=== PATIENT | female | born 1940 | race Two or more races ===

== ENCOUNTER 2018-08-08 17:34 | Emergency (ER) | payer MEDICARE, MEDICAID ==
[~2018-08-08] VITALS: Ht 154.9 cm; Wt 56.7 kg
[2018-08-08] MEDS ORDERED: METO-356 PO (17:44)
[2018-08-08] MEDS ORDERED: GABA400C PO (17:44)
[2018-08-08] MEDS ORDERED: LOSA50TA39 PO (17:44)
[2018-08-08 17:52] LABS: *BILIRUBIN,URIN 1+ (NEGATIVE); *BLOOD, URINE 3+ (NEGATIVE); *CLARITY,URINE CLOUDY (CLEAR); *KETONES,URINE TRACE (NEGATIVE); *UROBILINOGEN,URINE 0.2 E.U./dl (NORMAL); NITRITE, URINE NEGATIVE (NEGATIVE); PH,URINE 5.5 (5.0-8.0); UGLUCOSE NEGATIVE (NEGATIVE)
[2018-08-08 17:59] LABS: *COLOR,URINE Brown (YELLOW); LEUKOCYTE ESTERASE ,URINE 2+ (NEGATIVE)
[2018-08-08 18:01] LABS: BACTERIA,URINE FEW /HPF (NONE SEEN); RBC,URINE TNTC /HPF (0-3); SQUAMOUS EPITHELIAL CELL,UR MODERATE /HPF (NONE SEEN); WBC,URINE 50-80 /HPF (0-3)
[2018-08-08 18:02] LABS: MUCUS,URINE MODERATE /LPF (0-FEW)
[2018-08-08] MEDS ORDERED: CEFTRIAXONE 1 G VIAL IM ONE (18:15)
[2018-08-08] MEDS ORDERED: LIDOCAINE HCL 1% 20 ML VIAL ONE (18:19)
[2018-08-08] MEDS ORDERED: CEFTRIAXONE 1 G VIAL ONE (18:19)
--- NOTE | 2018-08-08 18:35 | NUR ---
Patient discharged to home in stable conditon. Written and verbal after care instructions given. Patient verbalizes understanding of instructions.pt accompanied bydaughters. pt walks in steady gait, no sign of distress.
== END 2018-08-08 18:37 | disposition home or self-care (01) ==
LOC: ER 17:37
DX: N39.0 Urinary tract infection, site not specified (principal); Z79.899 Other long term (current) drug therapy
CPT/HCPCS: 81001; 96372; 99283; J0696; J3490; A4663

== ENCOUNTER 2019-03-15 16:32 | Emergency (ER) | payer MEDICARE, MEDICAID ==
[~2019-03-15] VITALS: Ht 152.4 cm; Wt 52.2 kg
[~2019-03-15 16:32] MED LIST: GABA400C PO; LOSA50TA39 PO; METO-356 PO
[2019-03-15] MEDS ORDERED: CEphaleXIN 500 MG CAPSULE ONE (17:09)
[2019-03-15] MEDS ORDERED: SULFAMETH/TRIMETH 800/160 MG TABLET ONE (17:09)
--- NOTE | 2019-03-15 17:14 | NUR ---
Patient discharged to home in stable conditon. Written and verbal after care instructions given. Patient verbalizes understanding of instructions. Patient ambulated with stable gait.
[2019-03-15 17:15] VITALS: BP 139/82
[2019-03-15] MEDS ORDERED: SULFAMETH/TRIMETH 800/160 MG TABLET PO ONE (17:15)
[2019-03-15] MEDS ORDERED: CEphaleXIN 500 MG CAPSULE PO ONE (17:15)
== END 2019-03-15 17:16 | disposition home or self-care (01) ==
LOC: ER 16:32
DX: L03.114 Cellulitis of left upper limb (principal); Z79.899 Other long term (current) drug therapy
CPT/HCPCS: A4663

== ENCOUNTER 2019-03-21 11:26 | Emergency (ER) | payer MEDICARE, MEDICAID ==
[~2019-03-21] VITALS: Ht 152.4 cm; Wt 52.2 kg
--- NOTE | 2019-03-21 12:04 | NUR ---
MD is at bedside doing the medical screening exam.
--- NOTE | 2019-03-21 13:37 | NUR ---
Patient discharged to home in stable conditon. Written and verbal after care instructions given to patient and family. Patient & family verbalized understanding & compliance of instructions.
== END 2019-03-21 13:38 | disposition home or self-care (01) ==
LOC: ER 11:26
DX: S20.211A Contusion of right front wall of thorax, initial encounter (principal); Z79.899 Other long term (current) drug therapy; W01.0XXA Fall on same level from slipping, tripping and stumbling without subsequent striking against object, initial encounter; Y93.89 Activity, other specified; Y92.89 Other specified places as the place of occurrence of the external cause; Y99.8 Other external cause status
CPT/HCPCS: 71101; A4663

== ENCOUNTER 2019-06-27 14:48 | Emergency (ER) | payer MEDICARE, MEDICAID ==
[~2019-06-27] VITALS: Ht 162.6 cm; Wt 49.9 kg
--- NOTE | 2019-06-27 14:58 | NUR ---
Patient presents to ER, accompanied by family member for c/o of pain during urination. Patient placed in bed 2b. Patient alert and oriented. Urine collected and sent to lab. Patient denies abdominal pain. Abdomen soft non tender. Lung sounds clear bilaterally. No acute distress.
--- NOTE | 2019-06-27 15:00 | NUR ---
Dr. Casillas at bedside examining patient.
[2019-06-27] MEDS ORDERED: PENICILLIN G BENZATHINE 2.4 MMU/4 ML DISP.SYRIN IM ONE ×2 (15:30)
--- NOTE | 2019-06-27 15:37 | NUR ---
Per Dr. Casillas, pt stable for discharge. DC instructions and prescriptions given and reviewed with patient and her daughter. Verbalized understanding. Patient left ER in stable condition.
[2019-06-27 15:44] LABS: *BILIRUBIN,URIN NEGATIVE (NEGATIVE); *BLOOD, URINE 3+ (NEGATIVE); *CLARITY,URINE CLOUDY (CLEAR); *COLOR,URINE YELLOW (YELLOW); *KETONES,URINE NEGATIVE (NEGATIVE); *UROBILINOGEN,URINE 0.2 E.U./dl (NORMAL); LEUKOCYTE ESTERASE ,URINE 1+ (NEGATIVE); NITRITE, URINE POSITIVE (NEGATIVE); PH,URINE 5.5 (5.0-8.0); UGLUCOSE NEGATIVE (NEGATIVE)
[2019-06-27 15:52] LABS: RBC,URINE 20-50 /HPF (0-3); SQUAMOUS EPITHELIAL CELL,UR FEW /HPF (NONE SEEN)
[2019-06-27 15:53] LABS: BACTERIA,URINE MANY /HPF (NONE SEEN)
== END 2019-06-27 15:40 | disposition home or self-care (01) ==
LOC: ER 14:54
DX: N39.0 Urinary tract infection, site not specified (principal); Z79.899 Other long term (current) drug therapy
CPT/HCPCS: 87077; 87086; A4663

== ENCOUNTER 2020-08-07 19:26 | Emergency (ER) | payer MEDICARE, OTHER ==
[~2020-08-07] VITALS: Ht 144.8 cm; Wt 47.2 kg
--- NOTE | 2020-08-07 19:45 | NUR ---
pt presents to ER for c/o of pain and burning during urination. Pt in no acute distress. Seen and examined by Dr. Casillas.
[2020-08-07] MEDS ORDERED: NITR100C6 PO (19:56)
[2020-08-07 19:57] LABS: *BILIRUBIN,URIN NEGATIVE (NEGATIVE); *BLOOD, URINE 1+ (NEGATIVE); *CLARITY,URINE CLEAR (CLEAR); *COLOR,URINE YELLOW (YELLOW); *KETONES,URINE NEGATIVE (NEGATIVE); *UROBILINOGEN,URINE 0.2 E.U./dl (NORMAL); LEUKOCYTE ESTERASE ,URINE 1+ (NEGATIVE); NITRITE, URINE NEGATIVE (NEGATIVE); PH,URINE 5.5 (5.0-8.0); UGLUCOSE NEGATIVE (NEGATIVE)
[2020-08-07] MEDS ORDERED: NITROFURANTOIN/NITROFURAN MAC 100 MG CAPSULE PO ONE ×2 (20:00→20:06)
--- NOTE | 2020-08-07 20:05 | NUR ---
Per Dr. Casillas, pt stable for discharge. DC instructions and rx given to pt's daughter. Verbalized understanding. Left ER in stable condition.
[2020-08-07 22:39] LABS: BACTERIA,URINE MODERATE /HPF (NONE SEEN); SQUAMOUS EPITHELIAL CELL,UR FEW /HPF (NONE SEEN); WBC,URINE 20-50 /HPF (0-3)
== END 2020-08-07 20:07 | disposition home or self-care (01) ==
LOC: ER 19:26
DX: N39.0 Urinary tract infection, site not specified (principal)
CPT/HCPCS: 87077; 87086; A4663

== ENCOUNTER 2020-11-02 10:45 | Emergency (ER) | payer MEDICARE, OTHER ==
[~2020-11-02] VITALS: Ht 149.9 cm; Wt 46.7 kg
[~2020-11-02 10:45] MED LIST changes: +NITR100C6 PO
--- NOTE | 2020-11-02 11:05 | NUR ---
Dr Bijan Foley at bedside for MSE.
[2020-11-02 11:34] LABS: *BILIRUBIN,URIN NEGATIVE (NEGATIVE); *BLOOD, URINE 3+ (NEGATIVE); *CLARITY,URINE CLOUDY (CLEAR); *COLOR,URINE YELLOW (YELLOW); *KETONES,URINE NEGATIVE (NEGATIVE); *UROBILINOGEN,URINE 0.2 E.U./dl (NORMAL); LEUKOCYTE ESTERASE ,URINE 2+ (NEGATIVE); NITRITE, URINE NEGATIVE (NEGATIVE); UGLUCOSE NEGATIVE (NEGATIVE)
[2020-11-02] MEDS ORDERED: LEVO250T59 PO (11:57)
--- NOTE | 2020-11-02 12:02 | NUR ---
ERMD cleared for discharge. Patient discharged to home in stable condition. Written and verbal after care instructions given. Patient verbalizes understanding of instructions. Stressed follow up or return to ER for worsening s/s. Ambulated out of ED in steady gait.
[2020-11-02 12:03] VITALS: BP 135/70
[2020-11-02 13:59] LABS: BACTERIA,URINE FEW /HPF (NONE SEEN); RBC,URINE TNTC /HPF (0-3); SQUAMOUS EPITHELIAL CELL,UR FEW /HPF (NONE SEEN); WBC,URINE 50-80 /HPF (0-3)
== END 2020-11-02 12:04 | disposition home or self-care (01) ==
LOC: ER 10:45
DX: N39.0 Urinary tract infection, site not specified (principal); Z87.440 Personal history of urinary (tract) infections; Z79.899 Other long term (current) drug therapy; R03.0 Elevated blood-pressure reading, without diagnosis of hypertension
CPT/HCPCS: 87077; 87086; A4663

== ENCOUNTER 2021-11-10 13:52 | Emergency (ER) | payer MEDICARE, OTHER ==
[~2021-11-10] VITALS: Ht 154.9 cm; Wt 52.2 kg
[~2021-11-10 13:52] MED LIST changes: +LEVO250T59 PO
[2021-11-10 14:54] LABS: HEMATOCRIT 37.6 % (31.2-41.9); MEAN CORPUSCULAR HEMOGLOBIN 29.8 uug (24.7-32.8); MEAN CORPUSCULAR VOLUME 89.9 fL (75.5-95.3); PLATELET COUNT (AUTO) 221 K/uL (179-408)
[2021-11-10] MEDS ORDERED: LIDOCAINE 5% PATCH TD ONE ×2 (15:00→17:40)
[2021-11-10 15:39] LABS: CARBON DIOXIDE 26 mmol/L (21-32); CHLORIDE 103 mmol/L (98-107); CREATININE 1.1 mg/dL (0.6-1.3); GLUCOSE 103 mg/dL (74-106); POTASSIUM 4.1 mmol/L (3.5-5.1); UREA NITROGEN, BLOOD 17 mg/dL (7-18)
[2021-11-10] MEDS ORDERED: IOHEXOL 350 100 ML INFUS..BTL ONE (17:52)
[2021-11-10] MEDS ORDERED: IV NORMAL SALINE 250 ML IV ONE (17:52)
[2021-11-10] MEDS ORDERED: SWABABLE VALVE TRANSFER SET EA MC ONE (17:52)
--- NOTE | 2021-11-10 18:18 | NUR ---
Pt taken to CT
--- NOTE | 2021-11-10 19:24 | NUR ---
RECEIVED REPORT FROM ANGLE SANCHEZ
--- NOTE | 2021-11-10 19:57 | NUR ---
Patient discharged to home in stable condition. Written and verbal after care instructions given. Patient and daughter verbalizes understanding of instructions. Stressed follow up or return to ER for worsening s/s. Patient is a/ox4, NAD noted. Patient is able to walk with daughter's assitance
[2021-11-10 19:58] VITALS: BP 145/79
== END 2021-11-10 19:59 | disposition home or self-care (01) ==
LOC: ER 13:53
DX: R07.89 Other chest pain (principal); I10 Essential (primary) hypertension; R91.8 Other nonspecific abnormal finding of lung field
CPT/HCPCS: 36415; 71045; 71250; 71275; 80048; 84484 ×2; 85025; 93005; 99285; Q9967; A4663; J7040

== ENCOUNTER 2022-03-09 16:35 | Inpatient (IN) | payer MEDICARE, OTHER ==
[~2022-03-09] VITALS: Ht 152.4 cm; Wt 52.2 kg
--- NOTE | 2022-03-09 17:28 | NUR ---
pt bib ems for GLF at home while in shower, injured left hip. pt has 20g iv in right FA placed by EMS. pt in stable condition.
[2022-03-09] MEDS ORDERED: ELIQUIS PO (17:39)
[2022-03-09] MEDS ORDERED: MORPHINE SULFATE 4 MG/1 ML DISP.SYRIN IV ONE (18:00)
[2022-03-09] MEDS ORDERED: MORPHINE SULFATE 4 MG/1 ML DISP.SYRIN ONE (18:21)
--- NOTE | 2022-03-09 18:39 | NUR ---
pt redusing labs until she no longer feels pain, charge nurse administered 4mg morphine (MAR) and reports little relief, made aware.
[2022-03-09] MEDS ORDERED: IV NORMAL SALINE 500 ML BAG IV ONE (18:45)
[2022-03-09] MEDS ORDERED: FENTANYL CITRATE 100 MCG/2 ML AMPUL IV ONE (19:00)
--- NOTE | 2022-03-09 19:47 | NUR ---
handoff report given to Kennedi andres RN. pt in stable condition.
--- NOTE | 2022-03-09 20:02 | NUR ---
Dr. Poole on panel call with Laurel Castro NP.
[2022-03-09] MEDS ORDERED: FENTANYL CITRATE 100 MCG/2 ML AMPUL ONE (20:12)
[2022-03-09] MEDS ORDERED: ONDANSETRON 4 MG/2 ML VIAL IV ONE (20:45)
[2022-03-09] MEDS ORDERED: MORPHINE SULFATE 2 MG/1 ML DISP.SYRIN IV PRN (20:45)
[2022-03-09] MEDS ORDERED: ONDANSETRON 4 MG/2 ML VIAL IV PRN (20:45)
[2022-03-09] MEDS ORDERED: REMEDY ESSENTIAL ZINC PASTE 113 GM TP PRN (20:45)
[2022-03-09] MEDS ORDERED: ACETAMINOPHEN 325 MG TABLET PO PRN (20:45)
[2022-03-09] MEDS ORDERED: MAGNESIUM HYDROXIDE 30 ML LIQUID UDC PO PRN (20:45)
[2022-03-09] MEDS ORDERED: HYDROMORPHONE 1 MG/1 ML DISP.SYRIN IV ONE ×2 (20:45→22:15)
[2022-03-09] MEDS ORDERED: HYDROMORPHONE 1 MG/1 ML DISP.SYRIN ONE ×2 (21:03→22:27)
[2022-03-09 21:09] LABS: HEMATOCRIT 39.8 % (31.2-41.9); MEAN CORPUSCULAR HEMOGLOBIN 30.3 uug (24.7-32.8); PLATELET COUNT (AUTO) 171 K/uL (179-408)
[2022-03-09 21:19] LABS: BILIRUBIN,DIRECT 0.2 mg/dL (0.0-0.2); BILIRUBIN,TOTAL 0.9 mg/dL (0.2-1.0); CREATININE 1.3 mg/dL (0.6-1.3); POTASSIUM 3.7 mmol/L (3.5-5.1); TOTAL PROTEIN, SERUM 7.6 g/dL (6.4-8.2)
--- NOTE | 2022-03-09 22:23 | NUR ---
Patient was medicated for pain and report was called tot 3rd floor RN. Rhodes.Patient is stable, Daughter at bedside.
[2022-03-09] MEDS ORDERED: APIXABAN 2.5 MG TABLET PO SCH (22:45)
[2022-03-09] MEDS ORDERED: LOSARTAN POTASSIUM 25 MG TABLET PO SCH (22:45)
[2022-03-09] MEDS ORDERED: CLONIDINE HCL 0.1 MG TABLET PO ONE (22:45)
[2022-03-09] MEDS ORDERED: CLONIDINE HCL 0.1 MG TABLET ONE (22:48)
[2022-03-09 23:36] VITALS: BP 161/63
--- NOTE | 2022-03-09 23:45 | NUR ---
Admitted 82 yr old female only from ER via [facility] with diagnosis of hip fracture. AAOx4, Farsi speaking only. Daughter on bedside. (+) left hip pain 3/10. On room air patient was sating at 87%, placed O2 at 2LPM now sating at 95%. IV site on R AC 20 g intact and patent. Inserted Azul cath as ordered. Maintained sterile technique. Azul cath intact and draining well. Routine admission done. All needs attended. Safety precautions observed.
[2022-03-10] MEDS: LOSARTAN POTASSIUM 50 MG TABLET PO SCH ×3 (00:15→16:05)
[2022-03-10 04:21] VITALS: BP 160/69
[2022-03-10] MEDS: HYDROCODONE/APAP 5-325MG TABLET PO PRN ×2 (07:11→16:05)
[2022-03-10 07:20] LABS: HEMATOCRIT 36.8 % (31.2-41.9); MEAN CORPUSCULAR HEMOGLOBIN 30.9 uug (24.7-32.8); MEAN CORPUSCULAR VOLUME 91.5 fL (75.5-95.3); PLATELET COUNT (AUTO) 157 K/uL (179-408)
[2022-03-10 07:39] LABS: CREATININE 1.2 mg/dL (0.6-1.3); MAGNESIUM 2.1 mg/dL (1.8-2.4); PHOSPHOROUS 4.1 mg/dL (2.5-4.9)
[2022-03-10] MEDS ORDERED: GABAPENTIN 400 MG CAPSULE PO SCH (09:00)
[2022-03-10 11:56] VITALS: BP 170/77
[2022-03-10] MEDS ORDERED: POTASSIUM CHLORIDE 20 MEQ in IV D5 1/2 NS 1000 ML 1,000 ML IV PRN (13:45)
[2022-03-10 14:37] LABS: *BILIRUBIN,URIN NEGATIVE (NEGATIVE); *BLOOD, URINE 3+ (NEGATIVE); *CLARITY,URINE CLOUDY (CLEAR); *COLOR,URINE Brown (YELLOW); *KETONES,URINE NEGATIVE (NEGATIVE); *UROBILINOGEN,URINE 0.2 E.U./dl (NORMAL); LEUKOCYTE ESTERASE ,URINE 2+ (NEGATIVE); NITRITE, URINE NEGATIVE (NEGATIVE); UGLUCOSE NEGATIVE (NEGATIVE)
[2022-03-10] MEDS ORDERED: FLUT1BLS6 IH (14:50)
[2022-03-10] MEDS ORDERED: ATOR40TA PO (14:50)
[2022-03-10] MEDS ORDERED: AMIO200T5 PO (14:50)
[2022-03-10] MEDS ORDERED: HYDR-894 PO (14:54)
[2022-03-10] MEDS ORDERED: PANT40TA2 PO (14:54)
[2022-03-10] MEDS ORDERED: LOSA25TA27 PO (15:14)
[2022-03-10] MEDS ORDERED: MISCELLANEOUS MED XX PRN (15:45)
[2022-03-10 16:09] VITALS: BP 162/72
[2022-03-10] MEDS ORDERED: AMIODARONE HCL 200 MG TABLET PO SCH (16:30)
--- NOTE | 2022-03-10 16:40 | NUR ---
AM [facility] HERE. CONSENT SIGNED. PATIENT LEFT AMA TO [facility].
[2022-03-10 21:09] LABS: BACTERIA,URINE 2 /HPF (NONE SEEN); RBC,URINE 50-80 /HPF (0-3); SQUAMOUS EPITHELIAL CELL,UR FEW /HPF (NONE SEEN); WBC,URINE 20-50 /HPF (0-3)
[2022-03-10 21:10] LABS: URINE AMORPHOUS URATE MODERATE /HPF
[2022-03-11] MEDS ORDERED: GABAPENTIN 400 MG CAPSULE PO SCH (18:00)
== END 2022-03-10 16:40 | disposition left against medical advice (07) | DRG 536 ==
LOC: ER 16:35 → MEDSURG3 19:30
PROVIDERS: ADMIT Nurse Practitioner Acute Care; ATTEND Nurse Practitioner Acute Care
DX: S72.002A Fracture of unspecified part of neck of left femur, initial encounter for closed fracture (principal); D68.59 Other primary thrombophilia; I10 Essential (primary) hypertension; Z74.09 Other reduced mobility; W01.0XXA Fall on same level from slipping, tripping and stumbling without subsequent striking against object, initial encounter; M25.552 Pain in left hip; Z20.822 Contact with and (suspected) exposure to COVID-19
CPT/HCPCS: 36415; 71045; 72170; 73502; 83735; 84100; 85025; 85610; 87086; 93005; 93307; A4663; G0378; J1170; J2270; J2405; J3010; J3480; J7040

== ENCOUNTER 2024-11-02 11:06 | Emergency (ER) | payer MEDICARE, OTHER ==
[~2024-11-02] VITALS: Ht 147.3 cm; Wt 46.3 kg
[~2024-11-02 11:06] MED LIST changes: +AMIO200T5 PO; +ELIQUIS PO; +FLUT1BLS6 IH; -LEVO250T59 PO; +LOSA25TA27 PO; -LOSA50TA39 PO; -METO-356 PO; -NITR100C6 PO
[2024-11-02 11:53] LABS: *BILIRUBIN,URIN NEGATIVE (NEGATIVE); *BLOOD, URINE 1+ (NEGATIVE); *CLARITY,URINE CLEAR (CLEAR); *COLOR,URINE YELLOW (YELLOW); *KETONES,URINE NEGATIVE (NEGATIVE); *PROTEIN,URINE TRACE (NEGATIVE); *UROBILINOGEN,URINE 0.2 E.U./dl (NORMAL); LEUKOCYTE ESTERASE ,URINE NEGATIVE (NEGATIVE); NITRITE, URINE NEGATIVE (NEGATIVE); PH,URINE 5.5 (5.0-8.0); UGLUCOSE NEGATIVE (NEGATIVE)
[2024-11-02] MEDS ORDERED: DOXYCYCLINE HYCLATE 100 MG TABLET ONE (12:19)
[2024-11-02] MEDS ORDERED: FLUCONAZOLE 100 MG TABLET ONE (12:19)
[2024-11-02] MEDS: FLUCONAZOLE 100 MG TABLET PO ONE (12:20)
[2024-11-02] MEDS: DOXYCYCLINE HYCLATE 100 MG TABLET PO ONE (12:20)
[2024-11-02 12:25] LABS: BACTERIA,URINE FEW /HPF (NONE SEEN); SQUAMOUS EPITHELIAL CELL,UR FEW /HPF (NONE SEEN); WBC,URINE 0-3 /HPF (0-3)
[2024-11-02] MEDS ORDERED: NITR100C6 PO (12:27)
[2024-11-02 12:40] VITALS: BP 131/73; O2SAT 98
== END 2024-11-02 12:41 | disposition home or self-care (01) ==
LOC: ER 11:06
DX: R30.0 Dysuria (principal); R39.15 Urgency of urination; R35.0 Frequency of micturition; Z79.899 Other long term (current) drug therapy; Z86.19 Personal history of other infectious and parasitic diseases; Z87.440 Personal history of urinary (tract) infections; Z86.79 Personal history of other diseases of the circulatory system; Z87.39 Personal history of other diseases of the musculoskeletal system and connective tissue
CPT/HCPCS: 87086; A4606; A4663